=== PATIENT | male | born 2000 | race Caucasian/White ===

== ENCOUNTER 2019-09-29 13:25 | Emergency (ER) | payer SELFPAY ==
[~2019-09-29] VITALS: Ht 182.9 cm; Wt 112.0 kg
[2019-09-29 13:45] VITALS: BP 133/70
--- NOTE | 2019-09-29 13:52 | NUR ---
PT TO XRAY VIA WHEELCHAIR
--- NOTE | 2019-09-29 13:57 | NUR ---
PT RETURNED FROM XRAY VIA WHEELCHAIR.
--- NOTE | 2019-09-29 14:04 | NUR ---
19 Y/O MALE BIB FRIEND WITH C/O LT ANKLE PAIN AND SWELLING S/P "TWISTING" ANKLE PLAYING FOOTBALL YESTERDAY. PT STATES HE HEARD A POP WHEN IT OCCURRED. 10/10 THROBBING PAIN. PT STATES HE IS UNABLE TO AMBULATE. +SWELLING. NO BRUISING NOTED TO ANKLE. +CMS. PT SITTING ON BED CALM AND PLEASANT. SITTING ON BED POSITIONED FOR COMFORT. VSS. MEDHX: DENIES ALLERGIES:NKA
--- NOTE | 2019-09-29 14:25 | NUR ---
JORDAN MARTINO AT BEDSIDE EXAMINING PT.
[2019-09-29] MEDS ORDERED: ACETAMINOPHEN EXTRA STRENGTH 500 MG TAB PO ONE (14:30)
--- NOTE | 2019-09-29 14:40 | NUR ---
PT VERBALIZES UNDERSTANDING OF ANKLE WRAP AND CRUTCH USE.
--- NOTE | 2019-09-29 14:50 | NUR ---
Patient discharged with v/s stable. Written and verbal after care instructions given and explained. Patient alert, oriented and verbalized understanding of instructions. Ambulatory with steady gait. All questions addressed prior to discharge. ID band removed. Patient advised to follow up with PMD. Rx of ACETOMENAPHINE, IBUPROFEN given. Patient educated on indication of medication including possible reaction and side effects. Opportunity to ask questions provided and answered.
[2019-09-29 14:56] VITALS: BP 133/70
== END 2019-09-29 14:50 | disposition home or self-care (01) ==
LOC: MED 13:25
DX: S93.402A Sprain of unspecified ligament of left ankle, initial encounter (principal); X50.1XXA Overexertion from prolonged static or awkward postures, initial encounter; Y93.89 Activity, other specified; Y92.89 Other specified places as the place of occurrence of the external cause; Y99.8 Other external cause status
CPT/HCPCS: 73610; 99283